=== PATIENT | female | born 1965 | race Caucasian/White ===

== ENCOUNTER → 2016-12-04 | Outpatient (CLI) | payer OTHER ==
[~2016-12-04] MED LIST: PRENTAB26 PO
--- NOTE | 2016-12-07 13:16 | MAMMOGRAPHY REPORT ---
BILATERAL DIGITAL SCREENING MAMMOGRAM TOMOSYNTHESIS WITH CAD: 12/04/2016 CLINICAL HISTORY: Routine screening. Patient has no complaints. TECHNIQUE: Breast tomosynthesis in addition to standard 2D mammography was performed. Current study was also evaluated with a Computer Aided Detection (CAD) system. COMPARISON: Comparison is made to exams dated: 10/04/2015 mammogram, 09/28/2014 mammogram, 09/27/2013 ul trasound biopsy, 09/19/2013 mammogram, 09/19/2013 ultrasound, and 09/01/2013 mammogram - [facility]. BREAST COMPOSITION: The tissue of both breasts is heterogeneously dense, which may obscure small mas ses. FINDINGS: There is a focal asymmetry seen within the left upper outer quadrant, for which spot compr ession tomosynthesis views and possible breast ultrasound are recommended for further evaluation. The remainder of both breasts are stable compared to prior exams, without suspicious masses, calcific ations, or areas of architectural distortion noted. Again noted is a biopsy marker clip in the right 9:00 breast. Focal asymmetry with an associated biopsy marker clip in the left medial breast is sta ble. A few scattered benign-appearing calcifications are again noted. IMPRESSION: ACR BI-RADS CATEGORY 0: INCOMPLETE EVALUATION: NEED ADDITIONAL IMAGING EVALUATION Focal asymmetry in the left upper outer quadrant, for which additional imaging evaluation is recommen ded. The patient will be called to schedule an appointment. Approximately 10% of breast cancers are not detected with mammography. A negative mammographic report should not delay biopsy if a clinically suggestive mass is present. Maya Kaur M.D. ah/:12/04/2016 16:28:42 Warping Machine Operator: Cristela YOUNG(Rob)(Swetha), [facility] letter sent: Addl Imaging 0 BI-RADS Code: ACR BI-RADS Category 0: Incomplete Evaluation: Need Additional Imaging Evaluation
== END | disposition home or self-care (01) ==
LOC: C.MAMM 15:56
PROVIDERS: ATTEND Obstetrics & Gynecology
DX: Z12.31 Encounter for screening mammogram for malignant neoplasm of breast (principal); N64.9 Disorder of breast, unspecified

== ENCOUNTER → 2016-12-14 | Outpatient (CLI) | payer OTHER ==
--- NOTE | 2016-12-15 08:02 | MAMMOGRAPHY REPORT ---
UNILATERAL LEFT DIGITAL DIAGNOSTIC MAMMOGRAM TOMOSYNTHESIS AND TARGETED LEFT ULTRASOUND: 12/14/2016 CLINICAL HISTORY: 51-year-old woman called back from screening mammography for a new focal asymmetry in the left upper outer quadrant. History of prior benign biopsies in each breast. TECHNIQUE: Spot compression 2-D digital and tomosynthesis left CC and MLO views were obtained. COMPARISON: Comparison is made to exams dated: 12/04/2016 mammogram, 10/04/2015 mammogram, 09/28/2014 singh mogram, 09/27/2013 ultrasound biopsy, 09/19/2013 mammogram, and 09/19/2013 ultrasound - [facility]. BREAST COMPOSITION: There are scattered areas of fibroglandular density in the left breast. FINDINGS: There is persistence of a vague 17 x 25 x 35 mm focal asymmetry in the upper outer middle one third of the left breast. Asymmetry is best appreciated in the MLO projection. No associated ar chitectural distortion or microcalcification. Further evaluation with ultrasound was performed. Targeted ultrasound was performed in the upper outer quadrant of the left breast. In the 1:00 axis, 8 cm from the nipple, there is an island of dense glandular tissue with numerous interspersed hypoech oic tubular structures. It measures 23.2 x 8.0 x 19.3 mm, although mammographic measurements are lik nazario more accurate. This is thought to correlate with the focal mammographic asymmetry and given the interval development of this asymmetry comparing back to prior available mammograms this is indetermi lenin, warranting definitive characterization with tissue sampling. IMPRESSION: ACR BI-RADS CATEGORY 4: SUSPICIOUS, TARGETED ULTRASOUND ACR BI-RADS CATEGORY 4: SUSPICIO US 1. Ultrasound-guided core needle biopsy with possible vacuum assistance is recommended for a focal a symmetry with tangled interspersed ducts in the 1:00 left breast, 8 cm from the nipple. It measures approximately 2 cm. This is increasingly prominent based on prior mammograms. These results and recommendations were discussed with the patient at the time of the exam. She tenta tively scheduled the biopsy prior to leaving our department. Approximately 10% of breast cancers are not detected with mammography. A negative mammographic report should not delay biopsy if a clinically suggestive mass is present. Yolanda Mcneill M.D. ay/:12/14/2016 14:18:51 Compliance Examiner: Eli Amaya [facility] letter sent: Abnormal 10/07 BI-RADS Code: ACR BI-RADS Category 4: Suspicious Ultrasound BI-RADS: ACR BI-RADS Category 4: Suspici ous
== END | disposition home or self-care (01) ==
LOC: C.MAMM 13:40
PROVIDERS: ATTEND Obstetrics & Gynecology
DX: N64.89 Other specified disorders of breast (principal)

== ENCOUNTER → 2016-12-23 | Outpatient (CLI) | payer OTHER ==
--- NOTE | 2016-12-23 09:16 | Discharge Instructions ---
Discharge Instructions Procedure Procedure Date: Dec 23, 2016. Reason for visit: Left Asymmetry. Discharge Discharge Date: Dec 23, 2016. Discharge Diagnosis: post left breast ultrasound guided core biopsy Instructions Activity Recommendations: Additional Limitations (see below) Return to School/Work: no limitations Recommended Home Diet: No Limitations Provider Instructions: ACTIVITY RECOMMENDATIONS: * No lifting, pushing, pulling or exercising the affected side for three days. RETURN TO SCHOOL/WORK: * You may return to work/school after the procedure, but do not perform any strenuous activities for 24 to 48 hours. MEDICATIONS: * Tylenol (two 325 mg) every four to six hours if needed for mild pain (if not allergic to Tylenol). DIET: * Resume previous diet. SPECIAL CARE INSTRUCTIONS: * Keep biopsy site dry for 24 hours. May shower after 24 hours, but do not soak (bathe) incision. * May remove Tegaderm (plastic patch) tomorrow AFTER showering. * Leave the steri-strips on for one week. Allow the steri-strips to fall off by themselves. If not off after one week, you may remove them. You may place a Bandaid crosswise over the strips, if desired. * Apply ice 10 minutes on and 10 minutes off as needed. * Wear a bra at bedtime to sleep more comfortably for 2-3 days. * Your referring physician should have the results after approximately 5 to 7 business days. * Call for unusual bleeding, fever, drainage, etc or if you have any questions call [phone] during normal business hours or after hours call Dr Mcneill, . FOLLOW UP VISIT: Follow-up with Referring Physician as scheduled. Allergies Coded Allergies: No Known Allergies (Verified Allergy, Unknown, 10/06/07) Solomon Ham Recommendations: Call your doctor if: * Temperature above 101 degrees * Pain not relieved by pain medicine ordered * There is increased drainage or redness from any incision * You have any unanswered questions or concerns. Your Doctors Instructions noted above were prepared by provider Yolanda Mcneill. Patient Signature Section: Patient Instructions Signature Page Archana Osuna Patient (or Guardian) Signature/Date: I have read and understand the instructions given to me by my caregivers. Caregiver/RN/Doctor Signature/Date: The above-named patient and/or guardian has received patient instructions on this date. + Original Patient Signature Page (only) stays with chart. Please make copy for patient.
--- NOTE | 2016-12-23 14:47 | MAMMOGRAPHY REPORT ---
ULTRASOUND GUIDED BIOPSY LEFT BREAST: 12/23/2016 CLINICAL HISTORY: 2 cm focal asymmetry in the upper outer quadrant of the left breast that is increas ingly prominent compared to prior mammograms. Differential considerations include PASH and carcinoma . Patient presented for ultrasound guided core biopsy. COMPARISON: Comparison is made to exams dated: 12/14/2016 mammogram, 12/14/2016 ultrasound, 12/04/2016 m ammogram, 10/04/2015 mammogram, 09/28/2014 mammogram, and 09/01/2013 mammogram - [facility]. PATIENT CONSENT: The procedure, risks and benefits were discussed with the patient and informed writt en consent was obtained. Specific risks to this procedure include: bleeding, infection, puncture of a djacent structure, nontarget biopsy, sampling error, pain, medication reaction and metal allergy. PROCEDURE DESCRIPTION: A time out was performed and the left breast was agreed as the site of biopsy. The skin was prepped and draped in the usual sterile fashion. The island of isoechoic tissue and fung gled tubular hypoechoic spaces within in the 1:00 left breast was chosen as the target for biopsy. Beltran bcutaneous and intraparenchymal 1% buffered lidocaine was administered as local anesthesia. A skin in cision was made. Through the incision, 4 samples were taken with a 12 gauge Celero biopsy device. A wing-shaped metallic marker was placed at the biopsy site. Hemostasis was achieved after manual compr ession. The patient tolerated the procedure well and there was no immediate complication. The sample s were sent to the pathology department in an appropriately labeled container. Postprocedure left CC and ML tomosynthesis images were obtained. A new wing-shaped metallic biopsy m arker is seen within the 2 cm focal asymmetry in the left upper outer quadrant. No significant postb iopsy hematoma is identified. Note is made of a stable ribbon shaped metallic biopsy marker with ass ociated asymmetry in the medial left breast from prior biopsy. IMPRESSION: ULTRASOUND GUIDED BIOPSY Status post ultrasound guided core biopsy of a 2 cm focal asymmetry in the 1:00 left breast, with win g-shaped metallic biopsy marker placed at the site. The patient will receive notification of the biopsy results from her referring physician. Yolanda Mcneill M.D. ay/:12/23/2016 12:17:40 Reticle Printer: Cristela YOUNG(Rob)(Swetha), [facility]
--- NOTE | 2016-12-23 14:49 | MAMMOGRAPHY REPORT ---
UNILATERAL LEFT DIGITAL DIAGNOSTIC MAMMOGRAM TOMOSYNTHESIS: 12/23/2016 CLINICAL HISTORY: Status post ultrasound-guided core biopsy of an increasingly prominent focal asymme try in the 1:00 left breast. Please refer to the report from left breast ultrasound guided core biopsy performed at the same time for full detail. IMPRESSION: POST PROCEDURE IMAGING FOR MARKER PLACEMENT Please refer to the report from left breast ultrasound guided core biopsy performed at the same time for full detail. Approximately 10% of breast cancers are not detected with mammography. A negative mammographic report should not delay biopsy if a clinically suggestive mass is present. Yolanda Mcneill M.D. ay/:12/23/2016 09:06:38 Heater Operator Helper: Cristela YOUNG(Rob)(M), [facility] BI-RADS Code: Post Procedure Imaging For Marker Placement
== END | disposition home or self-care (01) ==
LOC: C.MAMM 08:15
PROVIDERS: ATTEND Obstetrics & Gynecology
DX: N64.89 Other specified disorders of breast (principal)

== ENCOUNTER → 2018-02-01 | Outpatient (CLI) | payer OTHER ==
--- NOTE | 2018-02-02 14:55 | MAMMOGRAPHY REPORT ---
BILATERAL DIGITAL SCREENING MAMMOGRAM TOMOSYNTHESIS WITH CAD: 02/01/2018 CLINICAL HISTORY: Routine screening examination. TECHNIQUE: The study was acquired using full field digital technology and interpreted from soft copy. Breast tomosynthesis in addition to standard 2D mammography was performed. Current study was also ev aluated with a Computer Aided Detection (CAD) system. COMPARISON: Comparison is made to exams dated: 12/23/2016 ultrasound biopsy, 12/14/2016 mammogram, 12/04 mammogram, 10/04/2015 mammogram, 09/28/2014 mammogram, and 09/19/2013 mammogram - [facility]. BREAST COMPOSITION: There are scattered areas of fibroglandular density in both breasts. FINDINGS: There are stable focal asymmetries with associated biopsy marker clips in the left breast. A stable subcentimeter mass with associated biopsy marker clip in the right breast. No new suspiciou s mass, architectural distortion or cluster of microcalcifications is seen. IMPRESSION: ACR BI-RADS CATEGORY 1: NEGATIVE There is no mammographic evidence of malignancy. A 1 year screening mammogram is recommended.( 019) The patient will receive written notification of the results. Some breast cancers are not detected with mammography. A negative mammographic report should not tl y biopsy if a clinically suggestive mass is present. Yolanda Mcneill M.D. ay/:02/01/2018 16:19:17 Certified Bench Jeweler Technician: RT Sowmya(R)(M), [facility] letter sent: Normal 1/2 BI-RADS Code: ACR BI-RADS Category 1: Negative
== END | disposition home or self-care (01) ==
LOC: C.MAMM 15:56
PROVIDERS: ATTEND Obstetrics & Gynecology
DX: Z12.31 Encounter for screening mammogram for malignant neoplasm of breast (principal)